=== PATIENT | male | born 1970 | race African-American/Black ===

== ENCOUNTER 2017-04-03 22:34 | Emergency (ER) | payer MEDICARE, MEDICAID ==
[2017-04-03 22:36] VITALS: BP 124/70; PULSE 72; RESP 16; TEMP 98.3; O2SAT 98
[2017-04-03] MEDS ORDERED: [UNRECOGNIZED DRUG - OTHER] IV (22:48)
[2017-04-03] MEDS ORDERED: oxyCODONE/ACETAMINOPHEN 5 MG/325 MG TAB PO ONE (23:00)
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
--- NOTE | 2017-04-03 23:27 | RADRPT ---
EXAM DATE/TIME: 04/03/2017 23:15 [facility] COMPARISON: No previous studies available for comparison. INDICATIONS : Knee pain. MEDICAL HISTORY : Rheumatoid arthritis. Hemophilia. SURGICAL HISTORY : None. ENCOUNTER: Initial ACUITY: 1 day PAIN SCORE: 8/10 LOCATION: Left knee, medial, lateral, and inferior. FINDINGS: There is deformity of the knee joint with narrowing of all 3 compartments, sclerosis, osteophytes, an d invagination adjacent to the tibial spine, characteristic of radiographic changes of hemophilia. T here is some periosteal thickening about the proximal metaphysis of the fibula characteristic of a ol d healed fracture. The suprapatellar soft tissues are normal in thickness. No radiopaque foreign adarsh dies. CONCLUSION: No acute findings. Remodeling and deformity of all 3 compartments of the knee characteristic of hemo philic arthropathy. Esteban Shields MD on April 03, 2017 at 23:22 Board Certified Radiologist. This report was verified electronically.
[2017-04-03] MEDS ORDERED: ANTIHEMOPHILIC FACTOR VIII IV ONE (23:45)
[2017-04-04] MEDS ORDERED: [UNRECOGNIZED DRUG - OTHER] IV PUSH ONE (00:15)
[2017-04-04 00:30] VITALS: BP 106/64; PULSE 62; RESP 16
[2017-04-04 00:47] VITALS: BP 104/56; PULSE 64; RESP 16
[2017-04-04 00:48] VITALS: RESP 16
[2017-04-04] MEDS ORDERED: TYLETAB34 PO (00:58)
[2017-04-04 01:39] VITALS: BP 106/58
== END 2017-04-04 01:41 | disposition home or self-care (01) ==
LOC: NEPC 22:34
DX: M25.062 Hemarthrosis, left knee (principal); D66 Hereditary factor VIII deficiency
CPT/HCPCS: 73560; 96374; 99284; J7187